=== PATIENT | female | born 2000 | race Caucasian/White ===

== ENCOUNTER 2019-02-07 19:17 | Emergency (ER) | payer OTHER ==
[2019-02-07 20:05] VITALS: BP 126/84
--- NOTE | 2019-02-07 20:24 | ER Document Report ---
HPI - HPI Patient complains to provider of: ? Time Seen by Provider: 02/07/19 20:11 Pain Level: 0 Context: 18-year-old female with PCOS the emergency department for chief complaint of possibility she might be . She is 11 days late and it is been 55 days since her last. She took a home test which was negative. She said about 3 weeks ago she did have some light brown spotting for about 3 days. She denies any fevers or chills, acute shortness of breath or chest pain, denies any abdominal or pelvic pain, denies any nausea or vomiting, denies any urinary symptoms, denies any abnormal vaginal discharge. No other complaints - REPRODUCTIVE Reproductive: DENIES: : Past Medical History - Social History Smoking Status: Never Smoker Family History: None Vertical Provider Document - CONSTITUTIONAL Notes: PHYSICAL EXAMINATION: Reviewed vital signs and charting by RN GENERAL: Alert, interacts well. No acute distress. HEAD: Normocephalic, atraumatic. EYES: Pupils equal and round. Extraocular movements intact. ENT: Oral mucosa moist, tongue midline. NECK: Full range of motion. Trachea midline. ABDOMEN: soft, non-tender. No distention. Bowel sounds present EXTREMITIES: Moves all 4 extremities spontaneously. No edema, No cyanosis. PSYCH: Normal affect, normal mood. SKIN: Warm, dry, normal turgor. No rashes or lesions noted. - INFECTION CONTROL TRAVEL OUTSIDE OF THE [place] IN LAST 30 DAYS: No Course - Re-evaluation Re-evalutation: 02/07/19 20:23 Urinalysis and urine hCG ordered and pending. Patient with history of PCOS patient has no other complaints and her only concern is for a check at this time she is otherwise asymptomatic. 02/07/19 20:58 test is negative. Patient is stable for discharge. Urinalysis does not show evidence of urinary tract infection. - Vital Signs Vital signs: Temp Pulse Resp BP Pulse Ox 98.2 F 73 18 126/84 H 99 02/07/19 20:03 02/07/19 20:03 02/07/19 20:03 02/07/19 20:03 02/07/19 20:03 Discharge - Discharge Clinical Impression: test negative Condition: Good Disposition: HOME, SELF-CARE Additional Instructions: Your test was negative. Please follow-up with your primary care doctor in the next 24 to 72 hours. If you develop any urinary tract infection type symptoms, develop high fever, develop any abnormal vaginal bleeding or discharge, please immediately return to the emergency department or your primary care doctor for reevaluation..
[2019-02-07 20:25] LABS: APPEARANCE,URINE CLEAR; BILIRUBIN,URINE NEGATIVE (NEGATIVE); COLOR,URINE STRAW; GLUCOSE, URINE NEGATIVE (NEGATIVE); KETONES,URINE NEGATIVE (NEGATIVE); LEUKOCYTE ESTERASE,URINE NEGATIVE (NEGATIVE); NITRITE,URINE NEGATIVE (NEGATIVE); PROTEIN,URINE NEGATIVE (NEGATIVE); URINE SPECIFIC GRAVITY 1.005; UROBILINOGEN,URINE NEGATIVE mg/dL (<2.0)
== END 2019-02-07 21:25 | disposition home or self-care (01) ==
LOC: ER 19:17
DX: Z32.02 Encounter for pregnancy test, result negative (principal)
CPT/HCPCS: 81001; 81025; 99282